=== PATIENT | female | born 1990 | race Two or more races ===

== ENCOUNTER 2021-10-18 10:56 | Outpatient (AMBR) | payer MEDICAID, SELFPAY ==
--- NOTE | 2021-10-18 13:10 | PT.OIERPT ---
PT OP Initial Eval Patient Information Visit Reasons: right shoulder pain Medical Diagnosis: M75.101 Treatment Dx #1: Right Shoulder Mobility Deficits Treatment Dx #2: Right Shoulder Weakness Start of Care: 10/18/21 Date of Onset: 08/22/21 Initial Assessment Subjective Pt is a 31 y/o female s/p right rotator cuff repair 08/22/21. Pt still has a lot of pain (7/10) with all activities. Pt has limitation with chores, self care, cooking, cleaning, lifting, recreational activities, and performing normal ADLs. Objective Right Shoulder PROM: all motions are WNL Right Shoulder AROM Flexion: 140 deg Abduction: 130 deg External Rotation: 80 deg Internal Rotation: 60 deg Right Shoulder MMTs: grossly 3-/5 Right Scapula MMTs: grossly 3-/5 Assessment Pt demonstrate right shoulder mobility and strength deficits s/p RTC repair leading to difficulty with ADLs. Pt will benefit from physical therapy to increase ROM, strength, and work on overall stability Short Term and Care Home Goals 1) Increase right shoulder AROM WNL in 12 wks to be able to perform overhead motions 2) Increase right shoulder MMTs grossly to 4-/5 in 12 wks to be able to perform chores 3) Decrease shoulder pain to 2/10 in 12 wks to be able to perform self care activities 4) Increase right scapula MMTs grossly to 4-/5 in 12 wks to be able to perform recreational activities 5) Indep with HEP Treatment Plan 1) Manual Therapy 2) Therapeutic Activities 3) Therapeutic Exercises 4) Modalities (ice, heat) Frequency and Duration 2 x wk for 12 wks Certification Dates: 10/18/21 to 01/16/22 Office Procedures PT Treatments PT Date of Service: 10/18/21 OP PT Eval Mod Complex 30 minutes: Yes
--- NOTE | 2021-11-27 15:56 | PT.ODS1RPT ---
PT OP Progress/Discharge Note Date of Service: 11/27/21 Progress Note/DC Note Progress Note/Discharge Note: DC Note Patient Information Visit Reasons: right shoulder pain Service Discharge Date: 11/27/21 Status Assessment: Pt only seen for the initial evaluation and did not return to therapy. Pt has been contact multiple times regarding follow up appts without success. At this time Pt will be d/c from care due to non-compliance per attendance policy. Pt did not meet set goals in therapy, thank you for your referrals Office Procedures PT Treatments PT Date of Service: 10/18/21 OP PT Eval Mod Complex 30 minutes: Yes
== END 2021-11-17 23:59 | disposition home or self-care (01) ==
PROVIDERS: PCP Nurse Practitioner Family; Referring Provider Nurse Practitioner Family; Visit Provider Orthopaedic Surgery
DX: Z98.890 Other specified postprocedural states (principal); M25.511 Pain in right shoulder; R53.1 Weakness; M75.101 Unspecified rotator cuff tear or rupture of right shoulder, not specified as traumatic
CPT/HCPCS: 97162

== ENCOUNTER → 2025-01-06 | Outpatient (CLI) | payer MEDICAID, SELFPAY ==
--- NOTE | 2025-01-06 14:51 | XR_ITS ---
Examination: Shoulder bilateral, 6 views Technique: Shoulder AP internal rotation, AP external rotation, Y view each shoulder total 6 views Exam date and time :January 06, 2025 1504 hours INDICATIONS: Bilateral shoulder pain right shoulder pain beginning 3 years ago left shoulder pain beginning 4 months ago, history right shoulder rotator cuff surgery FINDINGS: Widening at the right AC joint Mild narrowing right glenohumeral joint Mild narrowing left glenohumeral joint No acute shoulder fracture no shoulder dislocation IMPRESSION: Widening at the right AC joint, clinical correlation advised Mild narrowing right and left glenohumeral joints No fracture
== END | disposition home or self-care (01) ==
PROVIDERS: PCP Nurse Practitioner Family; Referring Provider Nurse Practitioner Family; Visit Provider Nurse Practitioner Family
DX: M25.812 Other specified joint disorders, left shoulder (principal); M25.811 Other specified joint disorders, right shoulder
CPT/HCPCS: 73030

== ENCOUNTER 2025-05-13 14:13 | Emergency (ER) | payer MEDICAID, SELFPAY ==
[2025-05-13 14:26] VITALS: BP 132/87; PULSE 97; RESP 20; TEMP 36.7; O2SAT 99; BMI 30.1
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
--- NOTE | 2025-05-13 14:41 | PD.EDUPEX ---
Upper Extremity Injury RME/HPI General Chief Complaint: Extremity Injury, Upper Stated Complaint: Right arm swelling last week Time Seen by Provider: 05/13/25 14:19 Arrival date/time: 05/13/25 14:13 RME / HPI RME / HPI narrative: 35-year-old female patient came in for evaluation regarding right shoulder pain. Patient told me that she woke up with pain to the right shoulder, described as dull ache, severity moderate. She had a history of rotator cuff surgery long time ago. Patient denies any trauma or fall denies any redness denies any fever denies any other complaints no medications taken prior travel. Related Data Home Medications ?Medication ?Instructions ?Recorded ?Confirmed sertraline 100 mg tablet 100 mg PO HS 09/21/21 09/21/21 tramadol 50 mg tablet 50 mg PO [id number] PRN Pain 09/21/21 09/21/21 Previous Rx's ?Medication ?Instructions ?Recorded cyclobenzaprine 10 mg tablet 10 mg PO TID PRN muscle spasm #30 05/13/25 tabs ibuprofen 800 mg tablet 800 mg PO Q8H PRN pain #30 tabs 05/13/25 Allergies Allergy/AdvReac Type Severity Reaction Status Date / Time Penicillins Allergy Verified 05/13/25 14:21 Review of Systems Review of Systems Narrative Review of Systems: Review of system reviewed and within normal limits except mentioned in HPI ED Exam Narrative Physical exam: VITAL SIGNS: Reviewed. GENERAL APPEARANCE: Alert and interactive, follows commands, no acute distress, HEAD AND FACE: Non-traumatic. ENT: PERRL, pink conjunctivitis, eyelid no trauma, Mucous membrane moist. NECK: Supple, nontender, no nuchal rigidity. CHEST: No tenderness, no crepitus, no paradoxical movement, no retractions. LUNGS: Clear, well ventilated, symmetric, no rales, no wheezing, no ronchi, no stridor, good breath sounds bilaterally. HEART: Regular rate, regular rhythm, no murmur, no gallops. ABDOMEN: Soft, positive bowel sounds, nondistended, no guarding, nontender, no rebound, no masses, RECTAL: Deferred. GENITAL: Deferred. NEUROLOGICAL: Gross motor function intact sensory function intact, Appropriate for age. MUSCULOSKELETAL: low back nontender, full range of motion. EXTREMITIES: Right shoulder tenderness, no redness limited range of motion. No swelling noted SKIN: Color pink, dry, no rash, no lacerations, no abrasions, no contusions. LYMPHATICS: Deferred. Course Quality Measures none Orders Category Date Time Status XR shoulder RT min 2V Stat Exams 05/13/25 14:41 Completed CYCLObenzaPRINE [Flexeril] Med 05/13/25 14:45 Discontinued 10 mg PO X1 ONE Ketorolac Inj [Toradol Inj] Med 05/13/25 14:45 Discontinued 30 mg IM X1 ONE Vital Signs Vital signs: Vital Signs Temperature 98.0 F 05/13/25 14:26 Pulse Rate 97 05/13/25 14:26 Respiratory Rate 20 05/13/25 14: Blood Pressure 132/87 H 05/13/25 14: Pulse Oximetry (%) 99 05/13/25 14:26 Oxygen Delivery Method Room Air 05/13/25 14:26 Extremity Injury MDM Narrative MDM Narrative:: 35-year-old female patient came in for evaluation regarding right shoulder pain. Patient told me that she woke up with pain to the right shoulder, described as dull ache, severity moderate. She had a history of rotator cuff surgery long time ago. Patient denies any trauma or fall denies any redness denies any fever denies any other complaints no medications taken prior travel. X-ray of the shoulder came back unremarkable. Results discussed with the patient. Patient was placed on her arm sling. Patient data External records reviewed:: None Clinical information provided by:: patient Social determinants that could affect healthcare access:: none Patient has the following chronic illnesses:: None How is presenting disease/condition affected by chronic disease/condition?: no chronic disease Evaluation data The following diagnostics were reviewed and interpreted by me:: radiology exam(s) Lab and/or radiology exams considered but not ordered:: None Interpretation Summary: None Medications / Prescriptions Medications or Prescriptions considered but not ordered:: None Medication administrations:: Medication Administration History Discontinued Medications Cyclobenzaprine HCl (Cyclobenzaprine 5 Mg Tablet) 10 mg PO X1 ONE Stop: 05/13/25 14:46 Last Admin: 05/13/25 15:06 Dose: 10 mg Documented By: Ketorolac Tromethamine (Ketorolac Inj 60 Mg/2 Ml Vial) 30 mg IM X1 ONE Stop: 05/13/25 14:46 Last Admin: 05/13/25 15:06 Dose: 30 mg Documented By: Toradol Flexeril Consultations Consultation(s) initiated? (list below): No Diagnosis Upper Extremity Injury Differential Diagnosis: dislocation of shoulder, fracture of humerus and other (Shoulder pain) Most likely diagnosis given after review of the tests above:: Shoulder pain right Admission Indicated Admission indicated?: not indicated Explain why admission is indicated or not indicated:: Stable Admission Request Was there a request for admission?: No Disposition Plan Disposition Plan: Discharge Discharge Attestation Discharge Attestation: The patient was given an opportunity to ask questions and understood the discharge instructions. Discharge instructions specifically effects, indications for sooner follow up or return to the emergency department, and the expected course of current diagnosis. Patient condition: Stable Discharge Plan Plan Patient Disposition: HOME (Self Care) Discharge Disposition comment: stable Prescriptions/Referrals Prescriptions/Med Rec: New cyclobenzaprine 10 mg tablet 10 mg PO TID PRN (Reason: muscle spasm) Qty: 30 0RF ibuprofen 800 mg tablet 800 mg PO Q8H PRN (Reason: pain) Qty: 30 0RF No Action sertraline 100 mg tablet 100 mg PO HS tramadol 50 mg tablet 50 mg PO [id number] PRN (Reason: Pain) Referrals: No Primary/Family,Physician [Primary Care Provider] - In 1 week Problem List Clinical Impression: Shoulder pain Patient/Caregiver Discharge Instructions Discharge Activity: activity as tolerated Education Materials: ED Shoulder Sprain Additional Instructions: Thank you for the opportunity for serving you today. You are stable for discharged . You are advised to: Follow-up with your PCP in 1 to 2 days and ask your PCP to refer you to a orthopedic surgeon Return to ED for worsening of symptoms Increase oral fluids Take medication as prescribed Print Language: Korean Stand Alone Forms: Evi Award Info., Patient Portal Info Letter ONDINA/LALO Supervising Physician ONDINA/LALO Supervising Physician: MD Mike
[2025-05-13] MEDS: CYCLObenzaPRINE 5 MG TABLET 10 MG PO (15:06)
[2025-05-13] MEDS: KETOROLAC INJ 60 MG/2 ML VIAL 30 MG IM (15:06)
== END 2025-05-13 18:04 | disposition home or self-care (01) ==
PROVIDERS: Emergency Provider Emergency Medicine
DX: M25.511 Pain in right shoulder (principal); M25.811 Other specified joint disorders, right shoulder
CPT/HCPCS: 73030; 96372; 99283; J1885; A9270